=== PATIENT | male | born 1975 | race Caucasian/White ===

== ENCOUNTER 2024-03-21 20:21 | Emergency (ER) | payer MEDICAID ==
[~2024-03-21] VITALS: Ht 175.3 cm; Wt 91.2 kg
[2024-03-21 20:30] VITALS: BP_SYST 131; PULSE 79; RESP 19; TEMP 97.7; O2SAT 98
[2024-03-21] MEDS ORDERED: TRIA15CR4 TP (21:07)
[2024-03-21] MEDS ORDERED: VIS25 PO (21:07)
[2024-03-21] MEDS ORDERED: PRED50TA PO (21:08)
[2024-03-21 21:25] VITALS: BP_SYST 131; PULSE 79; RESP 19; TEMP 97.7; O2SAT 98
== END 2024-03-21 21:22 | disposition home or self-care (01) ==
LOC: SED 20:21
DX: L74.3 Miliaria, unspecified (principal); Z79.52 Long term (current) use of systemic steroids; Z79.899 Other long term (current) drug therapy
CPT/HCPCS: 99283